=== PATIENT | female | born 1995 | race Caucasian/White ===

== ENCOUNTER → 2018-02-12 11:40 | Outpatient (CLI) | payer OTHER, SELFPAY ==
[2018-02-13 12:43] LABS: Group B Strep DNA By PCR Negative (Negative); Internal Control PASS; Probe Check PASS; Specimen Processing Control PASS
== END ==
PROVIDERS: Visit Provider Obstetrics & Gynecology
DX: Z36.85 Encounter for antenatal screening for Streptococcus B (principal)
CPT/HCPCS: 87081; 87653

== ENCOUNTER 2018-03-13 06:51 | Inpatient (IN) | payer SELFPAY ==
[2018-03-13 06:53] VITALS: BMI 24.3
[2018-03-13] MEDS: Lactated Ringers 1,000 ML 50 ML IV ×3 (07:35→15:29)
[2018-03-13 07:49] LABS: Hematocrit 31.6 % (37-47); Hemoglobin 10.1 g/dl (12.0-15.0); Mean Corpuscular Hgb 28.5 pg (27.0-32.0); Mean Corpuscular Volume 89.3 fL (81-99); Mean Platelet Vol. 11.1 fl (6.2-12.0); Platelet Count 150 K/mm3 (150-450); RBC Distribution Width CV 13.6 % (11.6-14.6); RBC Distribution Width SD 43.2 fl (35.1-43.9); Red Blood Count 3.54 M/mm3 (4.2-5.4); White Blood Count 6.3 K/mm3 (4.4-11.0)
[2018-03-13 07:55] LABS: Scan Indicated on CBC? Y/N NO
[2018-03-13] MEDS: Oxytocin 30 units/NS 500 ml 30 UNITS/500 ML IV.SOLN IV (08:07)
[2018-03-13] MEDS: fentaNYL-bupivacaine (epidural) 100 ML BAG EPIDURAL ×2 (12:31→18:37)
[2018-03-13] MEDS: Oxytocin 30 units/NS 500 ml 30 UNITS/500 ML IV.SOLN 167 UNITS IV (19:11)
--- NOTE | 2018-03-13 19:25 | PCM.OB.VAG ---
Vaginal Delivery Maternal Presentation: Medically Indicated Induction Method of Induction: Pitocin, Amniotomy Medical Reason for Induction: - - Moderate Oligohydramnios Amniotic Membrane Rupture Type: Artificial Amniotic Fluid Description: Clear Final DEVAN: 03/10/18 Final DEVAN Source: US <20 weeks Gestational age: 40 Weeks and 3 Days Date of Procedure: 03/13/18 Pre-Operative Diagnosis: IUP, Moderate Oligohydramnios Post-Operative Diagnosis: IUP, Moderate Oligohydramnios Surgery/ Procedure Performed: Vacuum Assisted Vaginal Delivery Type of Anesthesia: Epidural Description of Procedure: Spontaneous vaginal delivery of a viable male with Apgars of 8/9 with a normal three-vessel placenta from an occiput anterior presentation with clear amniotic fluid. No episiotomy. Second-degree midline laceration repaired with 3-0 Vicryl suture under epidural anesthesia. Kiwi vacuum suction used ?1 gentle pull from low outlet to assist with delivery of the head after approximately 5 hours of pushing and increasing maternal fatigue and deep variable decelerations. Sponge counts okay. Delivery physician: Frank See MD. Presentation: Vertex Placental Delivery Description: Spontaneous Placenta Disposition: [facility] Cord Vessel Description: 3 Vessels Cord Entanglement: None Estimated Blood Loss: 250 cc A gender: Male (1 minute): 8 (5 minute): 9 Episiotomy Description: None Laceration: Midline, Perineal Extension/lac, 2nd degree Medications given after delivery: IV Pitocin Complications: None
--- NOTE | 2018-03-13 19:31 | DCINST_ITS ---
Discharge Diet: No Restrictions Discharge Activity: May Shower, May Take a Tub Bath May resume sexual activity in: 4-6 weeks Additional Activity Instructions:: Nothing in the vagina for 4-6 weeks. You may return to work/school in 6 weeks. Call your doctor if you observe: Fever of 101 or Higher, Inability to urinate, Inability to have a bowel movement, Using more than one pad per hour Additional Instructions: If you experience any of the following, contact your healthcare provider. * Bleeding that soaks a pad every hour for 2 hours * Unrelieved incision or abdominal pain * Swelling, redness, discharge or bleeding from your incision or episiotomy site * Your incision begins to separate * Problems urinating (including inability to urinate or burning while urinating) . * Visual changes * Severe headache * Flu-like symptoms * Pain or redness in one of both of your breasts * Pain, warmth, tenderness or swelling in your legs, especially the calf area * Frequent nausea and vomiting * Symptoms of depression or anxiety If you experience any of the following, call 911 or go to the nearest Emergency Room. * Chest pain * Problems breathing * Seizure activity * Partial or complete paralysis of a body part, slurred speech, weakness or drooping of the face, or a sudden inability to walk or hold your balance Allergies/Adverse Reactions: Allergies No Known Allergies Allergy (Verified 03/13/18 07:47) Medications to take at Discharge Vitamins 1 tab PO DAILY 03/13/18 Please Follow Up With: Frank See MD - [phone] When: Call to make an appointment with your doctor in 6 weeks. Primary Care Physician: Frank Krishnamurthy [Primary Care Provider] -
--- NOTE | 2018-03-13 19:31 | PCM.DCVAG ---
Discharge Diet: No Restrictions Discharge Activity: May Shower, May Take a Tub Bath May resume sexual activity in: 4-6 weeks Additional Activity Instructions:: Nothing in the vagina for 4-6 weeks. You may return to work/school in 6 weeks. Call your doctor if you observe: Fever of 101 or Higher, Inability to urinate, Inability to have a bowel movement, Using more than one pad per hour Additional Instructions: If you experience any of the following, contact your healthcare provider. Bleeding that soaks a pad every hour for 2 hours Unrelieved incision or abdominal pain Swelling, redness, discharge or bleeding from your incision or episiotomy site Your incision begins to separate Problems urinating (including inability to urinate or burning while urinating). Visual changes Severe headache Flu-like symptoms Pain or redness in one of both of your breasts Pain, warmth, tenderness or swelling in your legs, especially the calf area Frequent nausea and vomiting Symptoms of depression or anxiety If you experience any of the following, call 911 or go to the nearest Emergency Room. Chest pain Problems breathing Seizure activity Partial or complete paralysis of a body part, slurred speech, weakness or drooping of the face, or a sudden inability to walk or hold your balance Allergies/Adverse Reactions: Allergies No Known Allergies Allergy (Verified 03/13/18 07:47) Medications to take at Discharge Vitamins 1 tab PO DAILY 03/13/18 Please Follow Up With: Frank See MD - [phone] When: Call to make an appointment with your doctor in 6 weeks. Primary Care Physician: Frank Krishnamurthy [Primary Care Provider] -
[2018-03-13] MEDS: Oxytocin 30 units/NS 500 ml 30 UNITS/500 ML IV.SOLN 334 UNITS IV (19:41)
[2018-03-13] MEDS: 0.9% Saline Lock 10 ML Syringe IV (20:42)
[2018-03-13 21:37] VITALS: BP 101/62; PULSE 78; RESP 18; TEMP 36.8
[2018-03-13] MEDS: Ibuprofen 600 MG Tablet PO (23:35)
[2018-03-14 00:30] VITALS: BP 99/56; PULSE 94; RESP 18; TEMP 37.7
[2018-03-14 04:35] VITALS: BP 91/42; PULSE 84; RESP 16; TEMP 37
[2018-03-14] MEDS: Ibuprofen 600 MG Tablet PO ×2 (07:10→20:23)
[2018-03-14 08:00] VITALS: BP 104/57; PULSE 88; RESP 16; TEMP 37.2; O2SAT 100
[2018-03-14 11:58] VITALS: BP 108/63; PULSE 78; RESP 16; TEMP 36.7; O2SAT 97
--- NOTE | 2018-03-14 12:12 | PCM.PN.OB ---
Subjective: Patient without complaints. Tolerating diet well. Breast-feeding going well. - Physical Exam Vital Signs AF, VSS Temp Pulse Resp BP Pulse Ox 98.0 F 78 16 108/63 97 03/14/18 11:58 03/14/18 11:58 03/14/18 11:58 03/14/18 11:58 03/14/18 11:58 Oxygen Delivery Method Room Air Weight: 154 lb 15.759 oz Body Mass Index (BMI) 24.3 Intake and Output for Last 24 Hours 03/12/18 03/13/18 03/14/18 23:59 23:59 23:59 Intake Total 3588 / 3588 Output Total 2425 / 2425 1500 / 1500 Balance 1163 / 1163 -1500 / -1500 Laboratory Tests Past 24 Hrs 03/13/18 22:20 Screen NEGATIVE Baby's Blood Type A POSITIVE Baby's NALLELY NEGATIVE Medical Necessity - Tobacco Use Smoking Status: Never smoker Assessment/Plan Doing well. Continuing present care.
[2018-03-14 16:03] VITALS: BP 101/65; PULSE 88; RESP 16; TEMP 36.6; O2SAT 100
[2018-03-14 20:14] VITALS: BP 98/62; PULSE 79; RESP 18; TEMP 36.4
[2018-03-14] MEDS: Senna/Docusate Sodium 1 Tablet PO (20:34)
--- NOTE | 2018-03-15 00:50 | NURSING ---
Taking over pt care at this time.
[2018-03-15 01:25] VITALS: BP 103/56; PULSE 80; RESP 16; TEMP 36.6; O2SAT 95
[2018-03-15 09:11] VITALS: BP 92/50; PULSE 88; RESP 16; TEMP 36.7; O2SAT 98
--- NOTE | 2018-03-15 09:14 | PCM.PN.OB ---
Subjective: Patient without complaints. Breast-feeding going well. Ready to go home today. - Physical Exam Vital Signs Temp Pulse Resp BP Pulse Ox 97.9 F 80 16 103/56 L 95 03/15/18 01:25 03/15/18 01:25 03/15/18 01:25 03/15/18 01:25 03/15/18 01:25 Oxygen Delivery Method Room Air Weight: 154 lb 15.759 oz Body Mass Index (BMI) 24.3 Intake and Output for Last 24 Hours 03/13/18 03/14/18 03/15/18 23:59 23:59 23:59 Intake Total 3588 / 3588 Output Total 2425 / 2425 1500 / 1500 Balance 1163 / 1163 -1500 / -1500 Medical Necessity - Tobacco Use Smoking Status: Never smoker Assessment/Plan Doing well. Will release to home with routine instructions. Follow-up in 6 weeks.
[2018-03-15] MEDS: Senna/Docusate Sodium 1 Tablet PO (12:57)
[2018-03-15 14:00] VITALS: BP 98/54; PULSE 84; RESP 16; TEMP 37; O2SAT 99
== END 2018-03-15 15:30 | disposition home or self-care (01) | DRG 775 ==
PROVIDERS: Admitting Provider Obstetrics & Gynecology; Family Provider Family Medicine; PCP Family Medicine; Visit Provider Obstetrics & Gynecology
DX: O41.03X0 Oligohydramnios, third trimester, not applicable or unspecified (principal); O48.0 Post-term pregnancy; Z3A.40 40 weeks gestation of pregnancy; Z37.0 Single live birth; O76 Abnormality in fetal heart rate and rhythm complicating labor and delivery; O75.81 Maternal exhaustion complicating labor and delivery; O70.1 Second degree perineal laceration during delivery
CPT/HCPCS: 59025; 59050; 85027; 85461; 86850; 86900; 90384; 93460; 99218; J7120; A4216; G0378; J2790